=== PATIENT | male | born 1985 | race African-American/Black ===

== ENCOUNTER 2018-09-14 18:32 | Emergency (ER) | payer BC ==
[~2018-09-14] VITALS: Ht 190.5 cm; Wt 94.3 kg
[~2018-09-14 18:32] MED LIST: NAPROSYN500 MG PO; NOHOMEMEDICATIONS; ZPAK PO
[2018-09-14] MEDS ORDERED: DILANTIN100 MG PO ×2 (19:41→22:07)
[2018-09-14 20:16] LABS: CALCIUM 9.8 mg/dL (8.5-10.1); CREATININE 1.2 mg/dL (0.7-1.3); POTASSIUM 3.6 mmol/L (3.5-5.1)
[2018-09-14 20:22] LABS: ALBUMIN 4.6 g/dL (3.4-5.0); MAGNESIUM 2.2 mg/dL (1.8-2.4); TOTAL BILIRUBIN 0.6 mg/dL (<0.1-1.0); TOTAL PROTEIN 8.1 g/dL (6.4-8.2)
[2018-09-14 21:16] LABS: AMP/METHAMP Negative (Negative); BARBITURATES Negative (Negative); BENZODIAZEPINES Negative (Negative); COCAINE Negative (Negative); METHADONE Negative (Negative); OPIATES Negative (Negative); PCP Negative (Negative)
[2018-09-14] MEDS ORDERED: ACETAMINOPHEN-1 EAC1 PO (22:07)
[2018-09-14] MEDS ORDERED: NAPROSYN500 MG PO (22:07)
[2018-09-14 22:22] VITALS: BP 120/65
== END 2018-09-14 22:12 | disposition home or self-care (01) ==
LOC: ER 18:32
PROVIDERS: Emergency Medicine
DX: S86.912A Strain of unspecified muscle(s) and tendon(s) at lower leg level, left leg, initial encounter (principal); S20.211A Contusion of right front wall of thorax, initial encounter; R51 Headache; R56.9 Unspecified convulsions; Z91.14 Patient's other noncompliance with medication regimen; V89.2XXA Person injured in unspecified motor-vehicle accident, traffic, initial encounter; Y93.89 Activity, other specified; Y92.410 Unspecified street and highway as the place of occurrence of the external cause; Y99.8 Other external cause status

== ENCOUNTER 2019-05-07 11:54 | Emergency (ER) | payer BC ==
[~2019-05-07] VITALS: Ht 190.5 cm; Wt 90.7 kg
[~2019-05-07 11:54] MED LIST changes: +ACETAMINOPHEN-1 EAC1 PO; +DILANTIN100 MG PO
[2019-05-07 12:38] LABS: ABSOLUTE NEUTROPHILS 2.7 thou/uL (1.4-8.2); BASOPHILS 0.4 % (0.0-2.0); EOSINOPHILS 0.9 % (0.0-3.0); HEMATOCRIT 43.3 % (42.0-52.0); HEMOGLOBIN 14.7 gm/dL (14.0-18.0); LYMPHOCYTES 22.2 % (24.0-44.0); MCH 33.2 pg (26.0-34.0); MCHC 33.9 g/dL (28.0-37.0); MCV 97.9 fL (80.0-100.0); MONOCYTES 9.1 % (1.0-8.0); PLATELET COUNT 274 thou/uL (150-400); POLYS 67.4 % (36.0-66.0); RBC 4.42 mil/uL (4.50-6.00); RDW 13.7 % (10.5-14.5)
[2019-05-07 12:51] LABS: ANION GAP 10 mmol/L (7-16); BUN 16 mg/dL (7-18); CHLORIDE 104 mmol/L (98-107); CO2 27 mmol/L (21-32); CREATININE 1.1 mg/dL (0.7-1.3); GLUCOSE 100 mg/dL (74-106); LIPASE 97 U/L (73-393); POTASSIUM 4.2 mmol/L (3.5-5.1); SODIUM 141 mmol/L (136-145); TROPONIN-I <0.06 ng/mL (<0.06)
[2019-05-07 13:05] LABS: CALCIUM 9.9 mg/dL (8.5-10.1)
[2019-05-07] MEDS ORDERED: NAPROSYN500 MG PO (13:33)
--- NOTE | 2019-05-07 13:34 | EKG ---
[place] [address] [facility] [place] [place] [address] ELECTROCARDIOGRAM REPORT Name: FLOANMOL ROBERT [facility] [id number] Admission: 05/07/19 Attend Phys: Discharge: Date of : 83 Report #: [id number] THIS REPORT FOR: //name// [facility] ED Test Date: 2019-05-07 Test Time: 12:33:11 Pat Name: ANMOL ROSSI Department: Room: Gender: M Online User Experience Strategist: nmd : 1985 Requested By: Charley Jane Order Number: [id number] MD: Avelino Olvera Measurements Intervals [place] Rate: 56 P: 64 VA: 149 QRS: 26 QRSD: 86 T: 45 QT: 440 QTc: 425 Interpretive Statements Sinus bradycardia Otherwise normal tracing No previous ECG available for comparison Electronically Signed On 05-07-2019 13:33:51 [employer] by Avelino Olvera [email or web address] <ELECTRONICALLY SIGNED> By: Avelino Olvera MD, [facility] 05/07/19 1333 1233 1233 Avelino Olvera MD, FACC /EPI
[2019-05-07 13:42] VITALS: BP 135/70
== END 2019-05-07 13:37 | disposition home or self-care (01) ==
LOC: ER 11:54
PROVIDERS: Nurse Practitioner Family
DX: R09.1 Pleurisy (principal)